=== PATIENT | male | born 1950 | race Caucasian/White ===

== ENCOUNTER 2017-07-31 15:17 | Emergency (ER) | payer OTHER, MEDICARE ==
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
[2017-07-31 15:49] VITALS: BP 130/91; PULSE 72; TEMP 98.4; BMI 31.1
== END 2017-07-31 17:17 | disposition home or self-care (01) ==
LOC: FER 15:17
DX: S13.4XXA Sprain of ligaments of cervical spine, initial encounter (principal); V43.52XA Car driver injured in collision with other type car in traffic accident, initial encounter; Y93.89 Activity, other specified; Y92.410 Unspecified street and highway as the place of occurrence of the external cause
CPT/HCPCS: 70450-TC; 72125-TC; 99282-25